=== PATIENT | male | born 1955 | race Caucasian/White ===

== ENCOUNTER 2021-05-11 06:59 | Inpatient (IN) ==
[2021-05-11] MEDS ORDERED: 0.9 % Sodium Chloride 1,000 ML IVC ONE (08:06)
[2021-05-11] MEDS ORDERED: Famotidine 20 MG/2 ML VIAL IVP ONE (08:07)
[2021-05-11 09:25] LABS: Influenza A PCR Negative (Negative); Influenza B PCR Negative (Negative); Resp. Syncytial Virus PCR Negative (Negative)
[2021-05-11 09:26] LABS: SARS-CoV-2 by PCR (In House) Negative (Negative)
[2021-05-11 10:32] LABS: Hematocrit 48.3 % (37.5-50.1); Hemoglobin 15.9 g/dL (12.9-16.9); Mean Corpuscular HGB Conc 32.9 g/dL (31.6-35.5); Mean Corpuscular Hemoglobin 30.6 pg (28.0-33.3); Mean Corpuscular Volume 92.9 fL (83.0-100.0); Mean Platelet Volume 9.9 fL (9.4-12.4); Platelet Count 349 K/mcL (140-400); Red Cell Distribution Width 13.2 % (11.5-14.5); White Blood Count 18.7 K/mcL (4.3-11.1)
[2021-05-11 10:42] LABS: Alanine Aminotransferase 15 Units/L (7-52); Albumin 4.2 g/dL (3.5-5.7); Albumin/Globulin Ratio 1.4 (1.1-2.2); Alkaline Phosphatase 71 Units/L (34-104); Aspartate Amino Transferase 15 Units/L (13-39); BUN/Creatinine Ratio 16 (6-26); Bilirubin,Direct 0.1 mg/dL (0.0-0.2); Bilirubin,Indirect 0.4 mg/dL (0.0-1.0); Bilirubin,Total 0.5 mg/dL (0.3-1.0); Blood Urea Nitrogen 23 mg/dL (8-23); Calcium 9.4 mg/dL (8.6-10.3); Carbon Dioxide 25 mEq/L (23-29); Chloride 100 mEq/L (98-107); Globulin 2.9 g/dL (2.4-3.5); Glucose 176 mg/dL (70-105); Osmolality,Calculated 294 (280-300); Potassium 4.1 mEq/L (3.5-5.1); Sodium 138 mEq/L (136-145); Total Protein 7.1 g/dL (6.4-8.9); eGFR For African Americans 58 (> 60); eGFR For Non-African Americans 48 (> 60)
[2021-05-11 10:50] LABS: Troponin I < 0.03 ng/mL (< 0.04)
[2021-05-11 13:38] LABS: Bacteria,Urine Few per hpf (None-Few); Bilirubin,Urine Negative (Negative); Blood,Urine Negative (Negative); Clarity,Urine Clear (Clear); Color,Urine Yellow (Yellow); Glucose,Urine (UA) Normal (Normal); Hyaline Casts,Urine Few per lpf (None Seen); Ketones,Urine 10 mg/dL (Negative); Leukocyte Esterase,Urine Negative (Negative); Mucus,Urine Few per lpf (None-Few); Nitrite,Urine Negative (Negative); Protein,Urine 30 mg/dL (Neg-Trace); Specific Gravity,Urine 1.024 (1.010-1.025); Squamous Epithelial Cell,Urine Few per hpf (None-Few); Urobilinogen,Urine Normal (Normal); WBC,Urine 0-3 per hpf (0-3)
[2021-05-11] MEDS ORDERED: Ondansetron 4 MG/2 ML VIAL IVP PRN (15:14)
[2021-05-11] MEDS ORDERED: Melatonin 3 MG TABLET PO PRN (15:14)
[2021-05-11] MEDS ORDERED: Naloxone 0.4 MG/ML INJ IVP PRN (15:14)
[2021-05-11] MEDS ORDERED: Vancomycin 1,750 MG in 0.9 % Sodium Chloride 250 ML IVPB SCH (16:00)
[2021-05-11] MEDS ORDERED: Vancomycin 1,750 MG/517.5 ML IV.SOLN IVPB ONE (17:00)
[2021-05-11] MEDS: Cefepime HCl 2,000 MG in Water for inj. (sterile) 20 ML IVP SCH (17:48)
[2021-05-11] MEDS: 0.9 % Sodium Chloride 1,000 ML IVC SCH (17:48)
[2021-05-11] MEDS ORDERED: Cefepime HCl 2,000 MG in 0.9 % Sodium Chloride Mini Bag 100 ML IVPB SCH (18:00)
[2021-05-11] MEDS ORDERED: cefTAZidime 2,000 MG in Water for inj. (sterile) 20 ML IVP SCH (18:00)
[2021-05-11] MEDS ORDERED: traZODone 50 MG TABLET PO PRN (22:37)
[2021-05-11] MEDS: Gabapentin 400 MG CAPSULE PO SCH (22:46)
[2021-05-12] MEDS: Cefepime HCl 2,000 MG in Water for inj. (sterile) 20 ML IVP SCH (05:25)
[2021-05-12] MEDS: 0.9 % Sodium Chloride 1,000 ML IVC SCH (05:26)
[2021-05-12 06:55] LABS: Basophils % 0.4 %; Eosinophils # 0.4 K/mcL (0.0-0.6); Eosinophils % 5.4 %; Hematocrit 33.2 % (37.5-50.1); Immature Granulocytes % 0.6 % (0-4); Lymphocytes # 1.7 K/mcL (0.6-4.6); Lymphocytes % 22.9 %; Mean Corpuscular HGB Conc 33.7 g/dL (31.6-35.5); Mean Corpuscular Hemoglobin 31.3 pg (28.0-33.3); Mean Corpuscular Volume 92.7 fL (83.0-100.0); Mean Platelet Volume 9.5 fL (9.4-12.4); Monocytes # 0.4 K/mcL (0.0-1.3); Monocytes % 5.7 %; Neutrophils # 4.7 K/mcL (1.6-8.9); Platelet Count 223 K/mcL (140-400); Red Blood Count 3.58 M/mcL (4.19-5.50); Red Cell Distribution Width 13.4 % (11.5-14.5)
[2021-05-12 07:15] LABS: Hemoglobin 11.2 g/dL (12.9-16.9); White Blood Count 7.2 K/mcL (4.3-11.1)
[2021-05-12 07:18] VITALS: TEMP 98.1
[2021-05-12 07:19] LABS: BUN/Creatinine Ratio 15 (6-26); Blood Urea Nitrogen 18 mg/dL (8-23); Calcium 8.2 mg/dL (8.6-10.3); Carbon Dioxide 27 mEq/L (23-29); Chloride 104 mEq/L (98-107); Glucose 128 mg/dL (70-105); Osmolality,Calculated 292 (280-300); Potassium 3.6 mEq/L (3.5-5.1); Sodium 139 mEq/L (136-145); eGFR For African Americans > 60 (> 60); eGFR For Non-African Americans 60 (> 60)
[2021-05-12] MEDS: Gabapentin 400 MG CAPSULE PO SCH ×2 (08:29→13:45)
[2021-05-12] MEDS ORDERED: hydroCHLOROthiazide 25 MG TABLET PO SCH (09:00)
[2021-05-12] MEDS ORDERED: amLODIPine 5 MG TABLET PO SCH (09:00)
[2021-05-12] MEDS ORDERED: D5% in Water 1,000 ML IVC PRN (10:14)
[2021-05-12] MEDS ORDERED: Dextrose Gel 15 GM/37.5 ML TUBE PO PRN ×2 (10:14)
[2021-05-12] MEDS ORDERED: *HR* Dextrose 50 % in Water (Syg) 50 ML SYRINGE IVP PRN (10:14)
[2021-05-12] MEDS ORDERED: Cholecalciferol (D-3) 1,000 UNIT (25MCG) TABLET PO SCH (10:15)
[2021-05-12] MEDS ORDERED: PARoxetine 30 MG TABLET PO SCH (10:15)
[2021-05-12] MEDS ORDERED: Artificial Tears SOLN 15 ML BOTTLE BOTH EYES PRN (10:43)
[2021-05-12 11:16] VITALS: BP 133/66; PULSE 72; O2SAT 98
[2021-05-12] MEDS ORDERED: Insulin LISPRO 300 UNITS/3 ML VIAL SUBQ SCH (11:30)
[2021-05-12] MEDS ORDERED: (Lifitegrast [Xiidra] 1 EACH Droperette) OP SCH (21:00)
== END 2021-05-12 14:40 | disposition home or self-care (01) | DRG 916 ==
LOC: EMEROOARM 06:59 → 3NENU 06:59 → SUATTDRO 15:26 → 3NENU 16:25
PROVIDERS: ADMIT Family Medicine; ATTEND Hospitalist